=== PATIENT | male | born 1985 | race Hispanic/Latino ===

== ENCOUNTER 2024-11-06 10:13 | Day surgery (SDC) | payer OTHER ==
[~2024-11-06] VITALS: Ht 160 cm; Wt 88.5 kg
[~2024-11-06 10:13] MED LIST: AMOX/K CLAV875 M1 PO; ANTI ANXIETY MED PO
[2024-11-06] MEDS ORDERED: ATORVASTATIN CA10 MG PO (10:26)
[2024-11-06] MEDS ORDERED: VITAMIN D1.25 MG PO (10:27)
[2024-11-06] MEDS ORDERED: FAMOTIDINE 10MG/ML 2ML SDV IV ONE (10:33)
[2024-11-06] MEDS ORDERED: LACTATED RINGER'S 1,000 ML IV ONE (10:34)
[2024-11-06] MEDS ORDERED: ceFAZolin Sodium 2 GM/VIAL SDV ONE (10:50)
[2024-11-06] MEDS ORDERED: SODIUM CHLORIDE 0.9% 100 ML IV ONE (10:50)
[2024-11-06] MEDS ORDERED: BUPIVACAINE 133 MG/10 ML VIAL IJ ONE (10:55)
[2024-11-06] MEDS ORDERED: BUPIVACAINE HCL 0.25% 25 MG/10 ML SDV ONE (10:55)
[2024-11-06] MEDS ORDERED: SODIUM CHLORIDE 20 ML/VIAL SDV ONE (10:55)
[2024-11-06] MEDS ORDERED: PERCOCET 5/325M1 TAB PO (11:57)
[2024-11-06] MEDS ORDERED: KETOROLAC TROMETHAMINE 30 MG/ML SDV ONE (12:48)
[2024-11-06] MEDS ORDERED: ACETAMINOPHEN 100 ML IV ONE (12:49)
[2024-11-06 13:15] VITALS: BP 122/81
[2024-11-06] MEDS ORDERED: PROPOFOL 200 MG/20 ML VIAL IV ONE (13:43)
== END 2024-11-06 13:27 | disposition home or self-care (01) | DRG 395 ==
LOC: ORM 10:13
PROVIDERS: ATTEND Surgery
PROC: 0H88XZZ Division of Buttock Skin, External Approach (ICD-10-PCS; principal; 2024-11-06)
DX: K60.323 Anal fistula, complex, recurrent (principal)
CPT/HCPCS: C9290; J0131; J0690